=== PATIENT | female | born 1950 | race Hispanic/Latino ===

== ENCOUNTER → 2018-10-01 | Day surgery (SDC) | payer MEDICARE ==
[2018-09-28 11:51] LABS: BASOPHILS % 0.4 % (0.0-1.0); EOSINOPHILS # (AUTO) 0.1 (0.0-0.4); EOSINOPHILS % 1.4 % (0.0-6.0); HEMATOCRIT 39.7 % (34.2-44.1); HEMOGLOBIN 13.2 g/dL (12.0-16.0); LYMPHOCYTES % 41.4 % (18.0-39.1); MEAN CORPUSCULAR HEMOGLOBIN 30.1 pg (28-32); MEAN CORPUSCULAR HGB CONC 33.2 g/dL (31-35); MEAN CORPUSCULAR VOLUME 90.6 fL (81-99); MONOCYTES # (AUTO) 0.3 (0.2-0.8); MONOCYTES % 6.8 % (4.4-11.3); NEUTROPHILS # (AUTO) 2.4 (2.1-6.9); PLATELET COUNT 213 x10e3/uL (140-360); RED BLOOD COUNT 4.38 x10e6/uL (3.6-5.1); RED CELL DISTRIBUTION WIDTH 11.6 % (11.7-14.4)
[~2018-10-01] MED LIST: ACTONEL35 MG PO; FENTANYL CITRATE/PF 100MCG/2 ML INJ ONE; LIDOCAINE HCL 2% LOCAL INJ 5 ML SDV VIAL INJ ONE; MIDAZOLAM HCL 2 MG/2 ML VIAL ONE; OXYBUTYNIN CHLO10 MG PO; OYSTER SHELL C1 EACH PO; PROPOFOL IV EMULSION 10 MG/ML 50 ML VIAL ONE; TYLENOL ARTHRITIS PO
--- OUTSIDE RECORDS SUMMARY | 2018-10-01 07:51 | XMS REPORT | Summary of Care ---
Author Author [facility] Outpatient Imaging [facility] Outpatient Imaging [facility] Address Unknown Phone Unavailable Encounter HQ Encntr_alias(FIN) [id number] Date(s): 10/09/17 - 10/09/17 [facility] Outpatient Imaging [facility] [address], [address] [place] [phone] Encounter Diagnosis Pain in unspecified joint (Final) - 10/13/17 Primary osteoarthritis, left hand (Final) - Discharge Disposition: Home or Self Care Attending Physician: Evy Denis MD Vital Signs No data available for this section Problem List No data available for this section Allergies, Adverse Reactions, Alerts No data available for this section Medications No data available for this section Results No data available for this section Immunizations No data available for this section Procedures No data available for this section Social History No data available for this section Assessment and Plan No data available for this section
--- OUTSIDE RECORDS SUMMARY | 2018-10-01 07:51 | XMS REPORT | Summary of Care ---
Author Author [facility] Organization [facility] Address Unknown Phone Unavailable Encounter HQ Encntr_alias(FIN) [id number] Date(s): 06/14/15 - 06/14/15 [facility] [address] [place] [address]- Discharge Disposition: Home Attending Physician: Jennifer Hurtado MD Referring Physician: Jennifer Hurtado MD Vital Signs No data available for [...]
--- OUTSIDE RECORDS SUMMARY | 2018-10-01 07:51 | XMS REPORT | Summary of Care ---
Author Author [facility] Outpatient Imaging [facility] Outpatient Imaging [facility] Address Unknown Phone Unavailable Encounter HQ Encntr_alias(FIN) [id number] Date(s): 03/21/17 - 03/21/17 [facility] Outpatient Imaging [facility] [address], [address] [place], [place] [address] [phone] Discharge Disposition: Home or Self Care Attending Physician: Ronaldo Vasquez MD Vital Signs No data available for [...]
--- OUTSIDE RECORDS SUMMARY | 2018-10-01 07:51 | XMS REPORT | Summary of Care ---
Author Author [facility] Organization [facility] Address Unknown Phone Unavailable Encounter HQ Encntr_alias(FIN) [id number] Date(s): 07/12/15 - 07/12/15 [facility] [address] [place] [address]- Discharge Disposition: Home Attending Physician: Jennifer Hurtado [...]
--- OUTSIDE RECORDS SUMMARY | 2018-10-01 07:51 | XMS REPORT | Summary of Care ---
Author Author [facility] Organization [facility] Address Unknown Phone Unavailable Encounter HQ Encntr_alimarvin(FIN) [id number] Date(s): 07/09/16 - 07/09/16 [facility] [address] [place] [address]- [phone] Discharge Disposition: Home or Self Care Attending Physician: Lara Barreto MD Referring Physician: Lara Barreto MD Vital Signs No data available for [...]
--- OUTSIDE RECORDS SUMMARY | 2018-10-01 07:51 | XMS REPORT | Summary of Care ---
Author Author [facility] Outpatient Imaging [facility] Outpatient [facility] Address Unknown Phone Unavailable Encounter HQ Encntr_alias(FIN) [id number] Date(s): 09/09/17 - 09/09/17 [facility] Outpatient [facility] [address] [phone]- [phone] Discharge Disposition: Home or Self Care Attending Physician: Lara Barreto MD Vital Signs No [...]
--- OUTSIDE RECORDS SUMMARY | 2018-10-01 07:51 | XMS REPORT | Continuity of Care Document ---
Author Author [facility] Interface Address Unknown Phone Unavailable Problems Problem Status Onset Date Classification Date Reported Comments Source Pain in unspecified joint 10/14/2017 01/15/2018 [facility] R92.2 Active 07/02/2016 [facility] DX: SCREENING NO PAIN,NO LUMPS,LAST MM Active 06/03/2016 [facility] DENSITY Active 07/10/2015 [facility] RIGHT BREAST DENSITY Active 07/10/2015 [facility] MAMMOGRAM Active 05/25/2015 [facility] LT BREAT PAIN Active 07/13/2014 [facility] LT BREAST PAIN Active 07/13/2014 [facility] Primary osteoarthritis, left hand 01/15/2018 SEYMOUR Mccarthyshore ENCNTR SCREEN MAMMOGRAM FOR MALIGNANT NE Active [facility] AGE-RELATED OSTEOPOROSIS W/O CURRENT PAT Active [facility] INCONCLUSIVE MAMMOGRAM Active [facility] Medications Medication Details Route Status Patient Instructions Ordering Provider Order Date Source Allergies, Adverse Reactions, Alerts Substance Category Reaction Severity Reaction type Status Date Reported Comments Source Immunizations Immunization Date Given Site Status Last Updated Comments Source Results Order Name Results Value Reference Range Date Interpretation Comments Source Bone Density D[employer] MA Bone Density [employer] MA BONE DENSITY ASSESSMENT: 09/16/2018 CLINICAL DATA: Post menopausal. /M81.0 Age-Related Osteoporosis Without Current Pathological Fracture COMPARISON: 09/09/2017 Right femur neck using a Hologic unit from [facility] with reported medium fracture risk, BMD of 0.594g/cm2, T-score of -2.30, and Z- score of -0.80. 09/09/2017 AP L1-L4 region of spine using a Hologic unit from [facility] with reported high fracture risk, BMD of 0.694g/cm2, T-score of - 3.20, and Z-score of -1.30. 09/09/2017 Left femur neck using a Hologic unit from [facility] with reported high fracture risk, BMD of 0.573g/cm2, T-score of -2.50, and Z- score of -1.00. FINDINGS: Bone density evaluation was performed 09/16/2018 on the right femur neck using a Hologic unit. The BMD average for the exam is 0.559 g/cm2. The T-score is -2.70 and the Z-score is -1.00. Since the previous similar exam of 09/09/2017, there has been a -0.035 or -5.9% change in the BMD value which represents no significant interval change in bone density. This matches the World Health Organization's criteria for osteoporosis and places the patient at a high risk for fracture. An additional bone density evaluation was performed 09/16/2018 on the left femur neck using a Hologic unit. The BMD average for the exam is 0.555 g/cm2. The T- score is -2.70 and the Z-score is -1.10. Since the previous similar exam of 09/09/2017, there has been a -0.018 or -3.1% change in the BMD value which represents no significant interval change in bone density. This matches the World Health Organization's criteria for osteoporosis and places the patient at a high risk for fracture. An additional bone density evaluation was performed 09/16/2018 on the AP L1-L4 region of spine using a Hologic unit. The BMD average for the exam is 0.688 g/cm2. The T-score is -3.30 and the Z-score is -1.30. Since the previous similar exam of 09/09/2017, there has been a -0.006 or -0.9% change in the BMD value which represents no significant interval change in bone density. This matches the World Health Organization's criteria for osteoporosis and places the patient at a high risk for fracture. IMPRESSION: OSTEOPOROSIS Patient is at high risk for fracture. This exam was interpreted at [id number] for [employer]. Edita charles/franci:09/17/2018 08:59:16 Admission Liaison(s): [facility] 09/16/2018 - - Read by: Edita Mccormick MD Dictated Date/time: 09/17/18 08:59 Electronically Signed by: Edita Mccormick MD 09/17/18 08:59 FINAL REPORT [facility] Breast Complete Jarrell US Breast Complete Jarrell US COMPLETE ULTRASOUND OF BOTH BREASTS AND AXILLA: 09/16/2018 CLINICAL: /R92.2 Inconclusive Mammogram. COMPARISON:Comparison is made to exams dated: 09/16/2018 mammogram - [facility], 09/09/2017 mammogram - [facility], 07/09/2016 ultrasound, 06/21/2016 mammogram, 07/12/2015 ultrasound, and 07/12/2015 mammogram - [facility]. TECHNIQUE: Color flow and real-time ultrasound of the right breast four quadrants, retroareolar, and axilla regions and real-time ultrasound of the left breast four quadrants, retroareolar, and axilla regions were performed. FINDINGS: No abnormalities were seen sonographically in either breast or either axilla. IMPRESSION: BENIGN RECOMMENDATION:There is no sonographic evidence of malignancy. A 1 year screening mammogram and an ultrasound is recommended.(09/17/2019) This exam [facility] at [id number] [facility]. Edi Joshi M.D. mt/penrad:09/16/2018 14:40:50 Admission Liaison(s): Kati Tran RDMS, [facility] letter sent: BI-RADS 1/2 Dense Ultrasound BI-RADS: 2 Benign 09/16/2018 - - Read by: Edi Joshi MD Dictated Date/time: 09/16/18 14:40 Electronically Signed by: Edi Joshi MD 09/16/18 14:40 FINAL REPORT [facility] Breast Mammo Scrn JARRELL w elodia incl CAD MA Breast Mammo Scrn JARRELL w elodia incl CAD MA BILATERAL DIGITAL SCREENING MAMMOGRAM 3D/2D WITH CAD: 09/16/2018 CLINICAL: /Screening. Current study was evaluated with a Computer Aided Detection (CAD) system. COMPARISON:Comparison is made to exams dated: 09/09/2017 mammogram - [facility], 07/09/2016 ultrasound, 06/21/2016 mammogram, 07/12/2015 ultrasound, 07/12/2015 mammogram, and 06/14/2015 mammogram - [facility]. TECHNIQUE: Digital Breast Tomosynthesis was performed and utilized for Interpretation. Current study was also evaluated with a Computer Aided Detection (CAD) system. FINDINGS: The tissue of both breasts is heterogeneously dense, which could obscure detection of small masses. There are benign scattered densities and calcifications in both breasts. No significant masses, calcifications, or other findings are seen in either breast. There has been no significant interval change. IMPRESSION: BENIGN There is no mammographic evidence of malignancy. PLEASE SEE SAME DAY ULTRASOUND REPORT. This exam was interpreted at [id number] for [facility] [employer]. Edi Joshi M.D. mt/:09/16/2018 14:39:13 Admission Liaison(s): Madina Go [facility] Mammogram BI-RADS: 2 Benign 09/16/2018 - - Read by: Edi Joshi MD Dictated Date/time: 09/16/18 14:39 Electronically Signed by: Edi Joshi MD 09/16/18 14:39 [facility] Bilateral DX Hand 3 views Bilateral DX EXAM: XR BILATERAL HAND 3 VIEWS DATE: 10/09/2017 2:06 PM GYROSCOPE TECHNICIAN INDICATION: - M25.50 Pain in unspecified joint COMPARISON: None. TECHNIQUE: PA, lateral and oblique radiographs of the bilateral hands. FINDINGS: No acute fracture or malalignment is identified. Joint space narrowing, sclerosis, and osteophytes of the left first CMC joint. No other joint space narrowing or osteophytes. No erosions. No soft tissue abnormality is identified. IMPRESSION: 1. 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 2. No other arthritic changes of the hands. 10/09/2017 - - This report was dictated by a Mirror Finishing Machine Operator/Fellow. I have personally reviewed the images as well as the Resident's interpretation and agree with the findings. Read by: Beba Brennan MD Resident: Beba Brennan MD Dictated Date/time: 10/09/17 15:21 Electronically Signed by: Oz Pacheco MD 10/09/17 19:14 FINAL [facility] Should[facility] 2+ Views Bilateral DX Shoulder 2+ Views Bilateral DX EXAM: XR BILATERAL SHOULDER 3 VIEWS DATE: 10/09/2017 2:06 PM GYROSCOPE TECHNICIAN INDICATION: - M25.50 Pain in unspecified joint COMPARISON: CT chest 09/09/2017 TECHNIQUE: 3 views of the bilateral shoulders FINDINGS: No acute fracture or malalignment is identified. The acromioclavicular and glenohumeral joints are well aligned. No soft tissue abnormality is identified. IMPRESSION: Normal exam of the bilateral shoulders. 10/09/2017 - - This report was dictated by a Mirror Finishing Machine Operator/Fellow. I have personally reviewed the images as well as the Resident's interpretation and agree with the findings. Read by: Beba Brennan MD Resident: Beba Brennan MD Dictated Date/time: 10/09/17 15:26 Electronically Signed by: Oz Pacheco MD 10/09/17 19:15 FINAL REPORT [facility] Chest w/wo contrast CT Chest w/wo contrast CT PROCEDURE: CHEST CT CLINICAL INDICATION: R91.1 - LUNG NODULE, ABNORMAL IMAGING. COMPARISON: Chest x-ray 03/21/2017. Report of an abdomen and pelvis CT performed 03/12/2017 from an outside facility was reviewed. The images are not available for direct comparison. Clustered tiny nodules in the right lower lobe which may represent recent infection was reported on that examination. TECHNIQUE: Unenhanced and enhanced axial helical CT images of the chest were performed. Postcontrast coronal and sagittal reformatted images are available. IV contrast: [address] radiation dose DLP 485.71 mGy-cm. FINDINGS: LUNGS: No demonstrable pulmonary nodule with particular attention to the right lower lobe. Minimal scarring in both lung apices. Minimal atelectasis/scarring in both lower lobes. No lung consolidation, pneumothorax or pleural effusion. The central airways are patent. MEDIASTINUM: Normal heart size. Trace fluid in the superior pericardial recess. Mild left coronary artery calcifications. Mild calcification of the transverse thoracic aorta. The caliber of the thoracic aorta and main pulmonary artery are within normal limits. No pathologic lymphadenopathy. No demonstrable abnormality of the thoracic esophagus or visualized thyroid gland. UPPER ABDOMEN: Splenic artery calcifications. No additional significant abnormality in the visualized upper abdomen. MUSCULOSKELETAL: 6 mm presumed sebaceous cyst in the subcutaneous fat of the right anterior abdomen (image 65 series 4). Stable slight curvature of the mid thoracic spine. A subcentimeter sclerotic focus in the marrow of L2 is likely a benign bone island. Few subcentimeter cysts in the marrow of the medial aspect of the right humeral head. IMPRESSION: 1. No demonstrable pulmonary nodule. 2. Minimal scarring in both lung apices and minimal atelectasis/scarring in both lower lobes. 3. Left coronary artery disease. 4. Presumed subcentimeter sebaceous cyst in the subcutaneous fat of the right anterior abdomen. 5. Osseous findings as described above. SL: 16 09/09/2017 - - Read by: Stanley Valverde MD Dictated Date/time: 09/10/17 08:33 Electronically Signed by: Stanley Valverde MD 09/10/17 09:09 FINAL REPORT [facility] Bone Density DXA [employer] MA Bone Density DXA [employer] MA BONE DENSITY ASSESSMENT: 09/09/2017 CLINICAL DATA: Post menopausal. M81.0-Osteoporosis. /M81.0 Age-Related Osteoporosis Without Current Pathological Fracture FINDINGS: Bone density evaluation was performed 09/09/2017 on the right femur neck using a Hologic unit. The BMD average for the exam is 0.594 g/cm2. The T-score is -2.30 and the Z-score is -0.80. This matches the World Health Organization's criteria for osteopenia and places the patient at a medium risk for fracture. An additional bone density evaluation was performed 09/09/2017 on the left femur neck using a Hologic unit. The BMD average for the exam is 0.573 g/cm2. The T- score is -2.50 and the Z-score is -1.00. This matches the World Health Organization's criteria for osteoporosis and places the patient at a high risk for fracture. An additional bone density evaluation was performed 09/09/2017 on the right total femur area using a Hologic unit. The BMD average for the exam is 0.695 g/cm2. The T-score is -2.00 and the Z-score is -0.70. This matches the World Health Organization's criteria for osteopenia and places the patient at a medium risk for fracture. An additional bone density evaluation was performed 09/09/2017 on the left total femur area using a Hologic unit. The BMD average for the exam is 0.678 g/cm2. The T-score is -2.20 and the Z-score is -0.90. This matches the World Health Organization's criteria for osteopenia and places the patient at a medium risk for fracture. An additional bone density evaluation was performed 09/09/2017 on the AP L1-L4 region of spine using a Hologic unit. The BMD average for the exam is 0.694 g/cm2. The T-score is -3.20 and the Z-score is -1.30. This matches the World Health Organization's criteria for osteoporosis and places the patient at a high risk for fracture. This was performed on a Hologic Discovery W machine. IMPRESSION: OSTEOPOROSIS Patient is at high risk for fracture. Patient consult w/primary care provider is recommended. This exam was interpreted at [id number] for [facility]. Jaymie Harrison M.D. ak/penrad:09/10/2017 10:38:30 Admission Liaison(s): Federica MORE)(M), [facility] 09/09/2017 - - Read by: Jaymie Harrison MD Dictated Date/time: 09/10/17 10:38 Electronically Signed by: Jaymie Harrison MD 09/10/17 10:38 FINAL REPORT [facility] Breast Mammo Scrn JARRELL incl CAD MA Breast Mammo Scrn JARRELL incl CAD MA BILATERAL DIGITAL SCREENING MAMMOGRAM WITH CAD: 09/09/2017 CLINICAL: /Routine. Current study was evaluated with a Computer Aided Detection (CAD) system. COMPARISON:Comparison is made to exams dated: 06/21/2016 mammogram, 07/12/2015 mammogram, 06/14/2015 mammogram - [facility], and 06/09/2014 mammogram. TECHNIQUE: Mammographic views were obtained using digital acquisition. Current study was also evaluated with a Computer Aided Detection (CAD) system. FINDINGS: The tissue of both breasts is heterogeneously dense, which could obscure detection of small masses. Stable left breast upper inner quadrant asymmetry may represent a hamartoma. There are benign calcifications in the right breast. No significant masses, calcifications, or other findings are seen in either breast. There has been no significant interval change. IMPRESSION: BENIGN RECOMMENDATION:There is no mammographic evidence of malignancy. A 1 year screening mammogram is recommended.(09/10/2018) This exam was interpreted at [id number] for [facility]. Professional services are provided by the [facility]. Wayne Mayorga M.D. cm/penrad:09/09/2017 15:35:10 Admission Liaison(s): RT Benjamin(R)(M), [facility] letter sent: BI-RADS 1/2 Mammogram BI-RADS: 2 Benign 09/09/2017 - - Read by: Kaushal Love MD Dictated Date/time: 09/09/17 15:35 Electronically Signed by: Kaushal Love MD 09/09/17 15:35 FINAL REPORT [facility] Chest 4 views DX Chest 4 views DX EXAM: XR CHEST 2 VIEWS DATE: 03/21/2017 1:36 PM CDT INDICATION: - R89.9 Unspecified abnormal finding in specimens from other organs, systems and tissues COMPARISON: None TECHNIQUE: PA and lateral chest radiographs FINDINGS: No pulmonary or pleural-based abnormality is identified. Pulmonary vascularity is normal. The heart size is normal. No acute bony abnormality is identified. IMPRESSION: No acute cardiopulmonary abnormality. 03/21/2017 - - Read by: Calos Morales MD Dictated Date/time: 03/21/17 13:53 Electronically Signed by: Calos Morales MD 03/21/17 13:53 FINAL REPORT [facility] Breast Complete Jarrell US Breast Complete Jarrell US - BREAST COMPLETE JARRELL US ULTRASOUND OF BOTH BREASTS AND BOTH AXILLA: 07/09/2016 CLINICAL: Dense breasts. Comparison is made to exams dated: 06/21/2016 mammogram, 07/12/2015 ultrasound, 07/12/2015 mammogram, 06/14/2015 mammogram - [facility], 06/09/2014 mammogram and 12/27/2010 mammogram. Color flow and real-time ultrasound of both breasts and both axilla were performed. Weaver scale images of the real-time examination were reviewed. For both breasts, all 4 quadrants, the retroareolar region and axilla are evaluated in this exam. No abnormalities were seen sonographically in either breast or either axilla. There has been no significant interval change. IMPRESSION: NEGATIVE There is no sonographic evidence of malignancy. A 1 year screening mammogram is recommended. The results were reviewed with the patient. Kip burdent/:07/09/2016 11:16:51 Admission Liaison: Ulises Monson, [facility] This exam was dictated and interpreted by [id number] for [facility]. letter sent: Normal [place] Ultrasound BI-RADS: 1 Negative 07/09/2016 - - Read by: Kip Jordan MD Dictated Date/time: 07/09/16 11:16 Electronically Signed by: Kip Jordan MD 07/09/16 11:16 FINAL REPORT [facility] Digital Mammo Screening Jarrell MA Digital Mammo Screening Jarrell MA - DIGITAL MAMMO SCREENING JARRELL MA BILATERAL DIGITAL SCREENING MAMMOGRAM WITH CAD: 06/21/2016 CLINICAL: Routine. Current study was evaluated with a Computer Aided Detection (CAD) system. Comparison is made to exams dated: 07/12/2015 mammogram, 06/14/2015 mammogram - [facility], 06/09/2014 mammogram and 12/27/2010 mammogram. The tissue of both breasts is heterogeneously dense, which could obscure detection of small masses. There are benign scattered densities in both breasts. There also are benign vascular calcifications in the right breast. No significant masses, calcifications, or other findings are seen in either breast. There has been no significant interval change. IMPRESSION: BENIGN There is no mammographic evidence of malignancy. A 1 year screening mammogram is recommended. SUMMARY: As the patient has dense breast parenchyma with scattered densities, this could obscure additional abnormalities. The patient would likely benefit from a supplemental screening test such as bilateral ultrasound. This should be discussed with the patient by the referring physician. Kip wright/penrad:06/21/2016 12:19:38 Admission Liaison: Elana Robbins, [facility] This exam was dictated and interpreted by [id number] for [facility]. letter sent: Normal [place] Mammogram BI-RADS: 2 Benign 06/21/2016 - - Read by: Kip Jordan MD Dictated Date/time: 06/21/16 12:19 Electronically Signed by: Kip Jordan MD 06/21/16 12:19 FINAL REPORT [facility] Bone Density Scan Bone Density Scan BONE DENSITY: HISTORY: Osteoporosis. TECHNIQUE: Dual energy x-ray absorptiometry (DEXA) was done over the lumbar spine and left hip on a [employer] Discovery SL scanner. FINDINGS: The total T-score over the lumbar spine is -3.4, consistent with osteoporosis. The previous T-score on 06/14/2015 was -3.4, consistent with osteoporosis. There has been a no change in BMD since the last exam The global T-score over the left hip is -1.7, consistent with osteopenia. The previous T-score was -1.7, consistent with osteopenia. There has been a 0.3% decrease in BMD since the last exam. The focal T-score over the left femoral neck is -2.6, consistent with osteoporosis. The BMD is 0.565 g/sq cm. The previous T-score over the left femoral neck was -2.7, consistent with osteoporosis, with a previous BMD of 0.559 g/sq cm. IMPRESSION: 1. Osteoporosis of the lumbar spine. 2. Global osteopenia of the left hip. 3. Focal osteoporosis of the left femoral neck. FOR YOUR INFORMATION: The World Health Organization has established that OSTEOPOROSIS occurs at -2.5 or more standard deviations (T-score) below peak bone mass (T-score on the Hologic report). OSTEOPENIA occurs at -1.0 to -2.5 standard deviations (T-score) below peak bone mass. [id number] 06/21/2016 - - Read by: Rishi Marrero MD Dictated Date/time: 06/21/16 10:39 Electronically Signed by: Rishi Marrero MD 06/21/16 10:42 FINAL REPORT [facility] Breast Complete Uni US Breast Complete Uni US - BREAST COMPLETE UNI US/R ULTRASOUND OF RIGHT BREAST AND RIGHT AXILLA: 07/12/2015 CLINICAL: Abnormal mammogram, mammographic nodule/density. Comparison is made to exams dated: 07/12/2015 mammogram, 06/14/2015 mammogram, 07/26/2014 breast MRI - [facility], 12/27/2010 mammogram and 06/09/2014 mammogram. Color flow and real-time ultrasound of the right breast and axilla were performed. Weaver scale images of the real-time examination were reviewed. All 4 quadrants, the retroareolar region and axilla are evaluated in this exam. No abnormalities were seen sonographically in the right breast or the right axilla. IMPRESSION: BENIGN There is no sonographic abnormality seen in the right breast to correspond with the initial mammographic density which is consistent with normal fibroglandular tissue. There is no sonographic evidence of malignancy. Return to annual mammogram screening schedule is recommended. The results were reviewed with the patient. Kip wright/:07/12/2015 10:50:20 Admission Liaison: Ulises Monson, [facility] This exam was dictated and interpreted by [id number] for [facility]. letter sent: Normal exam Ultrasound BI-RADS: 2 Benign 07/12/2015 - - Read by: Kip Jordan MD Dictated Date/time: 07/12/15 10:50 Electronically Signed by: Kip Jordan MD 07/12/15 10:50 FINAL REPORT [facility] Digital Mammo DX Uni MA Digital Mammo DX Uni MA - DIGITAL MAMMO DX UNI MA/R UNILATERAL RIGHT DIGITAL DIAGNOSTIC MAMMOGRAM WITH CAD: 07/12/2015 CLINICAL: Density abnormal mammogram, mammographic nodule/density. Current study was evaluated with a Computer Aided Detection (CAD) system. Comparison is made to exams dated: 06/14/2015 mammogram, 07/26/2014 breast MRI - [facility], 06/09/2014 mammogram and 12/27/2010 mammogram. The tissue of the right breast is heterogeneously dense, which could obscure detection of small masses. There are benign vascular calcifications in the right breast. There is a focal asymmetry in the right breast at 10 o'clock posterior depth. This is less prominent and correlates with the prior exam. No other significant masses or calcifications are seen in the breast. IMPRESSION: INCOMPLETE: NEEDS ADDITIONAL IMAGING EVALUATION The focal asymmetry in the right breast resembles fibroglandular tissue and is indeterminate. An ultrasound is recommended. The results were reviewed with the patient. SUMMARY: Ultrasound will be performed at this time; please see dedicated separate report. Kip wright/penrad:07/12/2015 10:51:07 Admission Liaison: Megan Rodriguez, [facility] This exam was dictated and interpreted by [id number] for [facility]. Mammogram BI-RADS: 0 Indeterminate 07/12/2015 - - Read by: Kip Jordan MD Dictated Date/time: 07/12/15 10:51 Electronically Signed by: Kip Jordan MD 07/12/15 10:51 FINAL REPORT [facility] Digital Mammo Screen Jarrell MA w elodia Digital Mammo Screen Jarrell MA w elodia - DIGITAL MAMMO SCREEN JARRELL MA W ELODIA BILATERAL DIGITAL SCREENING MAMMOGRAM 3D/2D WITH CAD: 06/14/2015 CLINICAL: Routine. 2D digital mammographic images and 3D digital tomosynthesis images were obtained in the CC and MLO projections. Current study was evaluated with a Computer Aided Detection (CAD) system. Comparison is made to exams dated: 06/09/2014 mammogram and 12/27/2010 mammogram. The tissue of both breasts is heterogeneously dense, which could obscure detection of small masses. There are benign vascular calcifications in the right breast. There is a focal asymmetry in the right breast at 11 o'clock posterior depth. There is possible associated architectural distortion. No other significant masses, calcifications, or other findings are seen in either breast. IMPRESSION: INCOMPLETE: NEEDS ADDITIONAL IMAGING EVALUATION The focal asymmetry in the right breast is indeterminate. Right diagnostic mammogram with possible ultrasound is recommended (spot compression, rolled views, and lateral view). Kip wright/penmaddi:07/05/2015 13:19:25 Admission Liaison: Margie Gonzalez, [facility] This exam was dictated and interpreted by [id number] for [facility] Breast [place]. letter sent: Additional Imaging Mammogram BI-RADS: 0 Indeterminate 06/14/2015 - - Read by: Kip Jordan MD Dictated Date/time: 07/05/15 13:19 Electronically Signed by: Kip Jordan MD 07/05/15 13:19 FINAL REPORT [facility] Bone Density Scan Bone Density Scan BONE DENSITY: TECHNIQUE: Dual energy x-ray absorptiometry (DEXA) was done over the lumbar spine and left hip. FINDINGS: The total T-score over the lumbar spine is -3.4, consistent with osteoporosis. The global T-score over the left hip is -1.7, consistent with osteopenia. The focal T-score over the left femoral neck is -2.7, consistent with osteoporosis. IMPRESSION: 1. Osteoporosis of the lumbar spine. 2. Global osteopenia of the left hip. 3. Focal osteoporosis of the left femoral neck. FOR YOUR INFORMATION: The World Health Organization has established that OSTEOPOROSIS occurs at -2.5 or more standard deviations below peak bone mass (T-score). OSTEOPENIA occurs at -1.0 to -2.5 standard deviations (T-score) below peak bone mass. SL:13 06/14/2015 - - Read by: Rishi Marrero MD Dictated Date/time: 06/14/15 11:52 Electronically Signed by: Rishi Marrero MD 06/14/15 11:53 FINAL REPORT [facility] Breast w/wo contrast bilat MRI Breast w/wo contrast bilat MRI BILATERAL BREAST MRI WITHOUT AND WITH CONTRAST dated 07/26/2014 COMPARISON: Outside facility mammogram 06/09/2014 and 12/27/2010 HISTORY/INDICATION: 64-year-old female with left breast pain. No personal history of breast cancer. Family history of breast cancer in a cousin. TECHNIQUE: Bilateral breast MRI was performed on a 1.5 Janet magnet with a dedicated breast coil. Sagittal, axial and sagittal subtraction imaging of the Vibrant dynamic images was performed. 10 ccs of Omniscan contrast was administered during the post infusion portion of the exam. Post processing images include post contrast subtraction, maximum intensity projection, and reconstructed multiplanar images. Exam was performed for evaluation of the breasts only. Although the [id number] includes portions of the chest, thoracic spine, and superior aspect of the abdomen, this exam is not diagnostic for those areas as it is not protocolled as such. These areas are limited by technical artifacts and cardiac motion. Time signal intensity curves were also analyzed using a [employer] workstation version 2.1.1. All measurements provided below are in the anterior-posterior X width X craniocaudal format. FINDINGS: Exam is degraded by patient respiratory motion. Right breast: Minimal background enhancement is present. No suspicious enhancement throughout the right breast. No internal mammary chain or axillary chain adenopathy. The skin and nipple-areolar complex appear unremarkable. Left breast: Minimal background enhancement is present. No suspicious enhancement throughout the left breast. No internal mammary chain or axillary chain adenopathy. The skin and nipple-areolar complex appear unremarkable. IMPRESSION: Exam is degraded by patient respiratory motion. No MRI evidence for malignancy in either breast. No adenopathy throughout the exam. No suspicious finding in the left breast to correspond with the patient's pain which may be perimenopausal hormonal stimulation in etiology. Continued clinical correlation is recommended. Unless otherwise clinically indicated, recommend bilateral screening mammogram in 05/2015. ACR BI-RADS CATEGORY 1 - NEGATIVE EXAM SL: 13 Thank you for allowing us to participate in the care of your patient. 07/26/2014 - - Read by: Kip Jordan MD Dictated Date/time: 07/26/14 14:58 Electronically Signed by: Kip Jordan MD 07/27/14 13:27 FINAL REPORT [facility] Vital Signs Vital Sign Value Date Comments Source Encounters Location Location Details Encounter Type Encounter Number Reason For Visit Attending Provider ADM Date DC Date Status Source [facility] Outpatient [id number] Jennifer Hurtado 07/26/2014 07/27/2014 [facility] Outpatient [id number] Jennifer Hurtado 06/14/2015 06/15/2015 [facility] Outpatient [id number] Jennifer Hurtado 07/12/2015 07/13/2015 [facility] Outpatient [id number] Lara Barreto 06/21/2016 06/22/2016 [facility] Outpatient [id number] Lara Barreto 07/09/2016 07/10/2016 [facility] [id number] Ronaldo Vasquez 03/21/2017 03/22/2017 [facility] [id number] Lara Barreto 09/09/2017 09/10/2017 [facility] [id number] Evy Denis 10/09/2017 10/10/2017 [facility] Procedures Procedure Code Date Perfomer Comments Source
--- OUTSIDE RECORDS SUMMARY | 2018-10-01 07:51 | XMS REPORT | Summary of Care ---
Author Organization Unknown Address Unknown Phone Unavailable Encounter HQ Encntr_jose(RAI) [id number] Date(s): 07/26/14 - 07/26/14 [facility] [address] Discharge Disposition: Home Physician Attending: Jennifer Hurtado MD Physician_Referring: Jennifer Hurtado MD Reason for Visit LT BREAST PAIN Problem List No data available for this section Allergies, Adverse Reactions, Alerts No data available for this section Medications No data available for this section Medications Administered During Your Visit No data available for this section Immunizations No data available for this section
[2018-10-01 10:50] VITALS: BP 131/76
--- NOTE | 2018-10-01 13:36 | Operative Report ---
DATE OF PROCEDURE: October 01, 2018 PREOPERATIVE DIAGNOSIS: History of colon polyps. POSTOPERATIVE DIAGNOSES 1. Cecal polyp removed with the hot biopsy forceps. 2. Scattered diverticula in the sigmoid and descending colon. 3. Internal hemorrhoids. OPERATION PERFORMED: Colonoscopy. PREOP MEDICATIONS: Consisted of TIVA anesthesia. PROCEDURE: Using the [employer] video colonoscope, this was inserted into the patient's rectum and advanced without difficulty to the level of the cecum. In the cecum a 4 mm sized flat polyp was identified and removed with the hot biopsy forceps. As the colonoscope was withdrawn from that level back down to the rectum, we saw some scattered diverticula in the sigmoid and descending colon only, without evidence of a diverticulitis. No other polyps were seen. As we withdrew the colonoscope from the patient's rectum, internal hemorrhoids were noted. The colonoscope was withdrawn from the patient's rectum, and the procedure was ended. In conclusion, we have findings of a polyp in the cecum which was removed, diverticulosis and internal hemorrhoids. Job#: [id number]
== END | disposition home or self-care (01) ==
LOC: OR 07:48
PROVIDERS: ATTEND Internal Medicine Gastroenterology
DX: Z12.11 Encounter for screening for malignant neoplasm of colon (principal); K63.5 Polyp of colon; K57.30 Diverticulosis of large intestine without perforation or abscess without bleeding; K59.00 Constipation, unspecified; K64.8 Other hemorrhoids; K21.9 Gastro-esophageal reflux disease without esophagitis; J45.909 Unspecified asthma, uncomplicated; E78.00 Pure hypercholesterolemia, unspecified; F41.9 Anxiety disorder, unspecified; Z88.1 Allergy status to other antibiotic agents; Z91.011 Allergy to milk products; Z91.018 Allergy to other foods; Z01.810 Encounter for preprocedural cardiovascular examination; Z01.812 Encounter for preprocedural laboratory examination; Z80.0 Family history of malignant neoplasm of digestive organs
CPT/HCPCS: 36415; 45384; 85025; 93005; J2001; J2250

== ENCOUNTER 2021-11-23 10:49 | Inpatient (IN) | payer MEDICARE ==
[2021-11-21 15:50] LABS: BASOPHILS % 0.3 % (0.0-1.0); EOSINOPHILS # (AUTO) 0.1 (0.0-0.4); EOSINOPHILS % 0.8 % (0.0-6.0); HEMATOCRIT 38.9 % (34.2-44.1); HEMOGLOBIN 13.1 g/dL (12.0-16.0); LYMPHOCYTES % 31.7 % (18.0-39.1); MEAN CORPUSCULAR HEMOGLOBIN 30.5 pg (28-32); MEAN CORPUSCULAR HGB CONC 33.7 g/dL (31-35); MEAN CORPUSCULAR VOLUME 90.7 fL (81-99); MONOCYTES # (AUTO) 0.4 (0.2-0.8); MONOCYTES % 5.7 % (4.4-11.3); NEUTROPHILS # (AUTO) 3.9 (2.1-6.9); NEUTROPHILS % 61.2 % (38.7-80.0); PLATELET COUNT 198 x10e3/uL (140-360); RED BLOOD COUNT 4.29 x10e6/uL (3.6-5.1); RED CELL DISTRIBUTION WIDTH 11.6 % (11.7-14.4)
[2021-11-21 16:08] LABS: ANION GAP 10.6 mmol/L (8-16); CALCIUM 9.7 mg/dL (8.4-10.2); CREATININE, SERUM 0.72 mg/dL (0.57-1.11); POTASSIUM 4.6 mmol/L (3.5-5.1)
[~2021-11-23] VITALS: Ht 154.9 cm; Wt 49.0 kg
[~2021-11-23 10:49] MED LIST changes: +ALENDRONATE SOD70 MG; +DOXAZOSIN MESYLA2 MG PO; +ESTRADIOL1 MG PO; -FENTANYL CITRATE/PF 100MCG/2 ML INJ ONE; -LIDOCAINE HCL 2% LOCAL INJ 5 ML SDV VIAL INJ ONE; -MIDAZOLAM HCL 2 MG/2 ML VIAL ONE; -PROPOFOL IV EMULSION 10 MG/ML 50 ML VIAL ONE; +TRIMETHOPRIM
[2021-11-23] MEDS ORDERED: GENTAMICIN 80MG/NS 100 ML 200 ML IV ONE (11:11)
[2021-11-23] MEDS ORDERED: PIPERACILLIN/TAZOBACTAM 3.375 GM VIAL ONE (11:12)
[2021-11-23] MEDS ORDERED: SODIUM CHLORIDE 0.9% 50ML 50 ML ONE (11:12)
[2021-11-23] MEDS ORDERED: ONDANSETRON HCL INJ 2MG/ML 2ML 2 MG/ML VIAL ONE (12:26)
[2021-11-23] MEDS ORDERED: LIDOCAINE HCL 2% LOCAL INJ 5 ML SDV VIAL INJ ONE (12:26)
[2021-11-23] MEDS ORDERED: POVIDONE IODINE 0.05% 0.05 % ML PO ONE (12:26)
[2021-11-23] MEDS ORDERED: SEVOFLURANE INHAL SOLN 250 ML PEN BTL ONE (12:26)
[2021-11-23] MEDS ORDERED: PROPOFOL IV EMULSION 10 MG/ML 20 ML VIAL ONE (12:26)
[2021-11-23] MEDS ORDERED: KETOROLAC TROMETHAMINE 30 MG/ML VIAL ONE (12:26)
[2021-11-23] MEDS ORDERED: PHENYLEPHRINE HCL 1% 10 MG/ML VIAL ONE (12:26)
[2021-11-23] MEDS ORDERED: NEOSTIGMINE 1 MG/ML 10ML VIAL ONE (12:26)
[2021-11-23] MEDS ORDERED: DEXAMETHASONE SOD PHOS INJ 4 MG/ML SDV ONE (12:26)
[2021-11-23] MEDS ORDERED: GLYCOPYRROLATE INJ 0.2 MG/ML VIAL ONE (12:26)
[2021-11-23] MEDS ORDERED: ROCURONIUM BROMIDE 10 MG/ML 5ML VIAL IV ONE (12:26)
[2021-11-23] MEDS ORDERED: IOPAMIDOL 300MG/ML 50ML INFUS..BTL IV ONE (12:47)
[2021-11-23] MEDS ORDERED: GENTAMICIN SULFATE 40 MG/ML 2 ML VIAL ONE (12:47)
[2021-11-23] MEDS ORDERED: BUPIVACAINE HCL 0.5% INJ 30 ML VIAL INJ ONE (12:47)
[2021-11-23] MEDS ORDERED: INDIGOTINDISULFONATE SODIUM 8 MG/ML AMP IJ ONE (12:47)
[2021-11-23] MEDS ORDERED: LIDOCAINE 1% W/EPINEPHRINE 20 ML VIAL ONE (12:47)
[2021-11-23] MEDS ORDERED: LIDOCAINE 2% /EPINEPHRINE 20 ML SDV INJ ONE (12:47)
[2021-11-23] MEDS ORDERED: ONDANSETRON HCL INJ 2MG/ML 2ML 2 MG/ML VIAL IV PRN (13:00)
[2021-11-23] MEDS ORDERED: DIPHENHYDRAMINE HCL 25 MG CAP PO PRN (13:00)
[2021-11-23] MEDS ORDERED: MORPHINE SULFATE 1 MG/ML 30ML PCA IV PRN ×2 (13:00→14:30)
[2021-11-23] MEDS ORDERED: ACETAMINOPHEN/CODEINE 300MG - 30MG TAB PO PRN (13:00)
[2021-11-23] MEDS ORDERED: NALOXONE HCL INJ 0.4 MG/ML AMP IV PRN (13:00)
[2021-11-23] MEDS ORDERED: PHENAZOPYRIDINE HCL 100 MG TAB PO PRN (13:00)
[2021-11-23] MEDS ORDERED: FENTANYL CITRATE/PF 100MCG/2 ML INJ ONE (13:12)
[2021-11-23] MEDS ORDERED: MIDAZOLAM HCL 2 MG/2 ML VIAL ONE (13:12)
[2021-11-23] MEDS ORDERED: MUPIROCIN 2% OINT 22 GM TUBE ONE (13:31)
[2021-11-23] MEDS ORDERED: ACETAMINOPHEN 1000 MG/100 ML 100 ML IV ONE (13:40)
[2021-11-23] MEDS ORDERED: ESTROGENS CONJUGATED VAGINAL CR 45 GM TUBE PV ONE (13:49)
[2021-11-23] MEDS ORDERED: MORPHINE SULFATE 1 MG/ML 30ML PCA ONE (14:25)
[2021-11-23 15:15] VITALS: BP 104/57
[2021-11-23] MEDS: D5.45%NS/KCL 20MEQ 1,000 ML IV SCH ×2 (16:01→22:04)
[2021-11-23] MEDS: DOCUSATE SODIUM 100 MG CAP PO SCH (16:06)
[2021-11-23 16:25] LABS: BASOPHILS % 0.2 % (0.0-1.0); EOSINOPHILS % 0.4 % (0.0-6.0); HEMATOCRIT 32.7 % (34.2-44.1); HEMOGLOBIN 10.7 g/dL (12.0-16.0); LYMPHOCYTES # (AUTO) 0.8 (1.0-3.2); LYMPHOCYTES % 16.9 % (18.0-39.1); MEAN CORPUSCULAR HEMOGLOBIN 30.6 pg (28-32); MEAN CORPUSCULAR HGB CONC 32.7 g/dL (31-35); MEAN CORPUSCULAR VOLUME 93.4 fL (81-99); MONOCYTES # (AUTO) 0.1 (0.2-0.8); MONOCYTES % 2.3 % (4.4-11.3); NEUTROPHILS # (AUTO) 3.9 (2.1-6.9); NEUTROPHILS % 79.8 % (38.7-80.0); PLATELET COUNT 160 x10e3/uL (140-360); RED CELL DISTRIBUTION WIDTH 11.7 % (11.7-14.4)
[2021-11-23 16:42] LABS: ANION GAP 9.7 mmol/L (8-16); CALCIUM 8.7 mg/dL (8.4-10.2); CREATININE, SERUM 0.68 mg/dL (0.57-1.11); POTASSIUM 3.7 mmol/L (3.5-5.1)
[2021-11-23 16:45] VITALS: BP 104/57
[2021-11-23 20:00] VITALS: BP 88/51
[2021-11-23 20:30] VITALS: BP 106/58
[2021-11-23] MEDS: PIPERACILLIN/TAZOBACTAM 3.375 GM in SODIUM CHLORIDE 0.9% 50ML 50 ML IV SCH (22:04)
[2021-11-24] VITALS (10 sets, daily range): BP systolic 96–110; BP diastolic 49–57
[2021-11-24] MEDS: PIPERACILLIN/TAZOBACTAM 3.375 GM in SODIUM CHLORIDE 0.9% 50ML 50 ML IV SCH ×3 (05:20→23:23)
[2021-11-24] MEDS: D5.45%NS/KCL 20MEQ 1,000 ML IV SCH ×3 (05:20→21:11)
[2021-11-24 06:16] LABS: BASOPHILS % 0.2 % (0.0-1.0); EOSINOPHILS % 0.1 % (0.0-6.0); HEMATOCRIT 25.9 % (34.2-44.1); HEMOGLOBIN 8.7 g/dL (12.0-16.0); LYMPHOCYTES # (AUTO) 1.3 (1.0-3.2); LYMPHOCYTES % 13.5 % (18.0-39.1); MEAN CORPUSCULAR HEMOGLOBIN 31.2 pg (28-32); MEAN CORPUSCULAR HGB CONC 33.6 g/dL (31-35); MEAN CORPUSCULAR VOLUME 92.8 fL (81-99); MONOCYTES # (AUTO) 0.5 (0.2-0.8); MONOCYTES % 4.9 % (4.4-11.3); NEUTROPHILS # (AUTO) 7.6 (2.1-6.9); NEUTROPHILS % 80.9 % (38.7-80.0); PLATELET COUNT 148 x10e3/uL (140-360); RED BLOOD COUNT 2.79 x10e6/uL (3.6-5.1); RED CELL DISTRIBUTION WIDTH 11.6 % (11.7-14.4)
[2021-11-24 06:29] LABS: CREATININE, SERUM 0.63 mg/dL (0.57-1.11)
[2021-11-24] MEDS ORDERED: ONDANSETRON HCL INJ 2MG/ML 2ML 2 MG/ML VIAL IV PRN (07:45)
[2021-11-24] MEDS ORDERED: ACETAMINOPHEN 325 MG TAB PO PRN (07:45)
[2021-11-24] MEDS ORDERED: MAGNESIUM SULFATE 2GM/50ML 50 ML IV ONE (07:45)
[2021-11-24] MEDS: DOXAZOSIN MESYLATE 2 MG TAB PO SCH (09:00)
[2021-11-24] MEDS ORDERED: SODIUM CHLORIDE 0.9% 1000ML 1,000 ML ONE (09:00)
[2021-11-24] MEDS: DOCUSATE SODIUM 100 MG CAP PO SCH ×2 (09:06→16:16)
[2021-11-24] MEDS ORDERED: PROMETHAZINE 25MG/ NS 50ML (IV) IV PRN (12:00)
[2021-11-25] VITALS (7 sets, daily range): BP systolic 104–124; BP diastolic 55–63
[2021-11-25 04:58] LABS: BASOPHILS % 0.3 % (0.0-1.0); EOSINOPHILS % 0.6 % (0.0-6.0); HEMATOCRIT 25.4 % (34.2-44.1); HEMOGLOBIN 8.4 g/dL (12.0-16.0); LYMPHOCYTES # (AUTO) 1.8 (1.0-3.2); LYMPHOCYTES % 28.9 % (18.0-39.1); MEAN CORPUSCULAR HGB CONC 33.1 g/dL (31-35); MEAN CORPUSCULAR VOLUME 93.7 fL (81-99); MONOCYTES # (AUTO) 0.4 (0.2-0.8); MONOCYTES % 6.4 % (4.4-11.3); NEUTROPHILS % 63.6 % (38.7-80.0); PLATELET COUNT 163 x10e3/uL (140-360); RED BLOOD COUNT 2.71 x10e6/uL (3.6-5.1)
[2021-11-25 05:24] LABS: ANION GAP 6.4 mmol/L (8-16); BLOOD UREA NITROGEN < 5 mg/dL (7-26); CALCIUM 8.4 mg/dL (8.4-10.2); CARBON DIOXIDE 29 mmol/L (22-29); CHLORIDE 111 mmol/L (98-107); CREATININE, SERUM 0.68 mg/dL (0.57-1.11); EST GLOMERULAR FILTRATION RATE 85 ML/MIN (60-); GLUCOSE 116 mg/dL (74-118); POTASSIUM 4.4 mmol/L (3.5-5.1); SODIUM 142 mmol/L (136-145)
[2021-11-25 05:26] LABS: BUN/CREATININE RATIO 7 (6-25)
[2021-11-25] MEDS: D5.45%NS/KCL 20MEQ 1,000 ML IV SCH (05:58)
[2021-11-25] MEDS: PIPERACILLIN/TAZOBACTAM 3.375 GM in SODIUM CHLORIDE 0.9% 50ML 50 ML IV SCH (05:58)
[2021-11-25] MEDS: DOXAZOSIN MESYLATE 2 MG TAB PO SCH (09:06)
[2021-11-25] MEDS: DOCUSATE SODIUM 100 MG CAP PO SCH ×2 (09:06→16:24)
[2021-11-25] MEDS: LEVOFLOXACIN 500 MG TAB PO SCH (11:03)
[2021-11-26] VITALS (7 sets, daily range): BP systolic 109–134; BP diastolic 61–72
[2021-11-26 06:03] LABS: BASOPHILS % 0.3 % (0.0-1.0); EOSINOPHILS # (AUTO) 0.1 (0.0-0.4); EOSINOPHILS % 1.4 % (0.0-6.0); HEMATOCRIT 25.6 % (34.2-44.1); HEMOGLOBIN 8.5 g/dL (12.0-16.0); LYMPHOCYTES # (AUTO) 1.8 (1.0-3.2); LYMPHOCYTES % 31.7 % (18.0-39.1); MEAN CORPUSCULAR HEMOGLOBIN 30.4 pg (28-32); MEAN CORPUSCULAR HGB CONC 33.2 g/dL (31-35); MEAN CORPUSCULAR VOLUME 91.4 fL (81-99); MONOCYTES # (AUTO) 0.4 (0.2-0.8); MONOCYTES % 7.4 % (4.4-11.3); NEUTROPHILS # (AUTO) 3.4 (2.1-6.9); NEUTROPHILS % 58.9 % (38.7-80.0); PLATELET COUNT 163 x10e3/uL (140-360); RED CELL DISTRIBUTION WIDTH 11.8 % (11.7-14.4)
[2021-11-26 06:35] LABS: ANION GAP 9.7 mmol/L (8-16); CALCIUM 8.8 mg/dL (8.4-10.2); CREATININE, SERUM 0.63 mg/dL (0.57-1.11); POTASSIUM 3.7 mmol/L (3.5-5.1)
[2021-11-26] MEDS: DOXAZOSIN MESYLATE 2 MG TAB PO SCH ×2 (08:50→08:54)
[2021-11-26] MEDS: DOCUSATE SODIUM 100 MG CAP PO SCH ×2 (08:50→08:54)
[2021-11-26] MEDS: LEVOFLOXACIN 500 MG TAB PO SCH (08:53)
[2021-11-26] MEDS ORDERED: ONDANSETRON HCL 4 MG ORAL DISINTEGRATING TAB PO PRN (11:15)
[2021-11-26] MEDS ORDERED: LEVOFLOXACIN250 MG PO (14:16)
[2021-11-26] MEDS ORDERED: TYLENOL 3 PO (14:18)
== END 2021-11-26 15:27 | disposition home or self-care (01) | DRG 748 ==
LOC: OR 10:49 → PACU V 14:43 → MED/SURG 15:15
PROVIDERS: ADMIT Internal Medicine; ATTEND Internal Medicine
PROC: BT141ZZ Fluoroscopy of Kidneys, Ureters and Bladder using Low Osmolar Contrast (ICD-10-PCS; 2021-11-23)
PROC: 8E0UXY7 Examination of Female Reproductive System (ICD-10-PCS; 2021-11-23)
PROC: 0JUC3JZ Supplement of Pelvic Region Subcutaneous Tissue and Fascia with Synthetic Substitute, Percutaneous Approach (ICD-10-PCS; principal; 2021-11-23 13:30)
PROC: 0TSD4ZZ Reposition Urethra, Percutaneous Endoscopic Approach (ICD-10-PCS; 2021-11-23 13:30)
PROC: 0T788ZZ Dilation of Bilateral Ureters, Via Natural or Artificial Opening Endoscopic (ICD-10-PCS; 2021-11-23 13:30)
DX: N81.4 Uterovaginal prolapse, unspecified (principal); N39.0 Urinary tract infection, site not specified; N81.6 Rectocele; N39.3 Stress incontinence (female) (male); Z90.710 Acquired absence of both cervix and uterus; N32.81 Overactive bladder; N95.2 Postmenopausal atrophic vaginitis; N36.41 Hypermobility of urethra; R39.14 Feeling of incomplete bladder emptying; R35.1 Nocturia; R39.15 Urgency of urination; Z20.822 Contact with and (suspected) exposure to COVID-19
CPT/HCPCS: 36415; 71046; 74420; 80048; 83735; 85025; 93005; 94799; 96360; C1752; C1758; J1100; J1580; J1885; J2001; J2250; J2270; J2370; J2405; J2543; J2550; J2710; J3010; J3475; J7030; U0002

== ENCOUNTER 2022-05-06 10:56 | Inpatient (IN) | payer MEDICARE ==
[2022-05-02 11:38] LABS: BASOPHILS % 0.4 % (0.0-1.0); EOSINOPHILS # (AUTO) 0.1 (0.0-0.4); EOSINOPHILS % 1.8 % (0.0-6.0); HEMATOCRIT 37.7 % (34.2-44.1); HEMOGLOBIN 12.3 g/dL (12.0-16.0); LYMPHOCYTES # (AUTO) 1.8 (1.0-3.2); LYMPHOCYTES % 39.2 % (18.0-39.1); MEAN CORPUSCULAR HEMOGLOBIN 29.9 pg (28-32); MEAN CORPUSCULAR HGB CONC 32.6 g/dL (31-35); MEAN CORPUSCULAR VOLUME 91.7 fL (81-99); MONOCYTES # (AUTO) 0.3 (0.2-0.8); MONOCYTES % 6.9 % (4.4-11.3); NEUTROPHILS # (AUTO) 2.3 (2.1-6.9); NEUTROPHILS % 51.5 % (38.7-80.0); PLATELET COUNT 189 x10e3/uL (140-360); RED BLOOD COUNT 4.11 x10e6/uL (3.6-5.1); RED CELL DISTRIBUTION WIDTH 12.6 % (11.7-14.4)
[2022-05-02 11:57] LABS: ANION GAP 9.1 mmol/L (8-16); CALCIUM 9.2 mg/dL (8.4-10.2); CREATININE, SERUM 0.67 mg/dL (0.57-1.11); POTASSIUM 4.1 mmol/L (3.5-5.1)
[~2022-05-06] VITALS: Ht 154.9 cm; Wt 48.5 kg
[~2022-05-06 10:56] MED LIST changes: +COLACE100 MG/10 PO; -ESTRADIOL1 MG PO; +ESTRADIOL1 MG TOP; +LEVOFLOXACIN250 MG PO; +TYLENOL 3 PO
[2022-05-06] MEDS ORDERED: GENTAMICIN 80MG/NS 100 ML 200 ML IV ONE (11:30)
[2022-05-06] MEDS ORDERED: PIPERACILLIN/TAZOBACTAM 3.375 GM VIAL ONE (11:30)
[2022-05-06] MEDS ORDERED: EPHEDRINE SULFATE INJ 50 MG/ML VIAL ONE (12:22)
[2022-05-06] MEDS ORDERED: LIDOCAINE HCL 2% LOCAL INJ 5 ML SDV VIAL INJ ONE (12:22)
[2022-05-06] MEDS ORDERED: DEXAMETHASONE SOD PHOS INJ 4 MG/ML SDV ONE (12:22)
[2022-05-06] MEDS ORDERED: NEOSTIGMINE 1 MG/ML 10ML VIAL ONE (12:22)
[2022-05-06] MEDS ORDERED: ROCURONIUM BROMIDE 10 MG/ML 5ML VIAL IV ONE (12:22)
[2022-05-06] MEDS ORDERED: SEVOFLURANE INHAL SOLN 250 ML PEN BTL ONE (12:22)
[2022-05-06] MEDS ORDERED: GLYCOPYRROLATE INJ 0.2 MG/ML VIAL ONE (12:22)
[2022-05-06] MEDS ORDERED: POVIDONE IODINE 0.05% 0.05 % ML PO ONE (12:22)
[2022-05-06] MEDS ORDERED: ONDANSETRON HCL INJ 2MG/ML 2ML 2 MG/ML VIAL ONE (12:22)
[2022-05-06] MEDS ORDERED: ACETAMINOPHEN 1000 MG/100 ML IV ONE (12:22)
[2022-05-06] MEDS ORDERED: PROPOFOL IV EMULSION 10 MG/ML 20 ML VIAL ONE (12:22)
[2022-05-06] MEDS ORDERED: MIDAZOLAM HCL 2 MG/2 ML VIAL ONE (12:41)
[2022-05-06] MEDS ORDERED: FENTANYL CITRATE/PF 100MCG/2 ML INJ ONE (12:41)
[2022-05-06] MEDS ORDERED: IOPAMIDOL 610MG/1ML 300 MG/ML VIAL IV ONE (12:56)
[2022-05-06] MEDS ORDERED: GENTAMICIN SULFATE 40 MG/ML 2 ML VIAL ONE (14:35)
[2022-05-06] MEDS ORDERED: ACETAMINOPHEN 1000 MG/100 ML IV PRN (15:15)
[2022-05-06] MEDS ORDERED: NALOXONE HCL INJ 0.4 MG/ML AMP IV PRN (15:15)
[2022-05-06] MEDS ORDERED: DIPHENHYDRAMINE HCL INJ 50 MG/ML VIAL IM PRN (15:15)
[2022-05-06] MEDS: MORPHINE SULFATE 1 MG/ML 30ML PCA IV PRN ×2 (15:35→17:13)
[2022-05-06 15:50] LABS: BASOPHILS % 0.3 % (0.0-1.0); EOSINOPHILS % 0.5 % (0.0-6.0); HEMATOCRIT 33.5 % (34.2-44.1); HEMOGLOBIN 11.4 g/dL (12.0-16.0); LYMPHOCYTES # (AUTO) 1.6 (1.0-3.2); LYMPHOCYTES % 25.8 % (18.0-39.1); MEAN CORPUSCULAR HEMOGLOBIN 30.2 pg (28-32); MEAN CORPUSCULAR VOLUME 88.6 fL (81-99); MONOCYTES # (AUTO) 0.1 (0.2-0.8); MONOCYTES % 2.2 % (4.4-11.3); NEUTROPHILS # (AUTO) 4.5 (2.1-6.9); NEUTROPHILS % 70.7 % (38.7-80.0); PLATELET COUNT 150 x10e3/uL (140-360); RED BLOOD COUNT 3.78 x10e6/uL (3.6-5.1); RED CELL DISTRIBUTION WIDTH 12.5 % (11.7-14.4)
[2022-05-06 16:06] LABS: ANION GAP 13.4 mmol/L (8-16); CALCIUM 8.3 mg/dL (8.4-10.2); CREATININE, SERUM 0.62 mg/dL (0.57-1.11); POTASSIUM 3.4 mmol/L (3.5-5.1)
[2022-05-06 16:23] VITALS: BP 117/55
[2022-05-06 16:49] VITALS: BP 117/55
[2022-05-06 16:54] VITALS: BP 117/55
[2022-05-06] MEDS ORDERED: TYLENOL EXTRA500 MG PO (17:11)
[2022-05-06] MEDS: ONDANSETRON HCL INJ 2MG/ML 2ML 2 MG/ML VIAL IV PRN ×2 (17:20→21:57)
[2022-05-06] MEDS: D5.45%NS/KCL 20MEQ 1,000 ML IV SCH (17:22)
[2022-05-06 20:00] VITALS: BP 119/63
[2022-05-06 21:00] VITALS: BP 117/55
[2022-05-07] VITALS (9 sets, daily range): BP systolic 108–127; BP diastolic 58–73
[2022-05-07] MEDS: D5.45%NS/KCL 20MEQ 1,000 ML IV SCH ×4 (03:02→21:37)
[2022-05-07] MEDS: ONDANSETRON HCL INJ 2MG/ML 2ML 2 MG/ML VIAL IV PRN ×2 (03:20→07:54)
[2022-05-07 05:44] LABS: BASOPHILS % 0.1 % (0.0-1.0); HEMATOCRIT 32.5 % (34.2-44.1); HEMOGLOBIN 11.1 g/dL (12.0-16.0); LYMPHOCYTES # (AUTO) 0.6 (1.0-3.2); LYMPHOCYTES % 6.1 % (18.0-39.1); MEAN CORPUSCULAR HEMOGLOBIN 30.1 pg (28-32); MEAN CORPUSCULAR HGB CONC 34.2 g/dL (31-35); MEAN CORPUSCULAR VOLUME 88.1 fL (81-99); MONOCYTES # (AUTO) 0.3 (0.2-0.8); MONOCYTES % 2.9 % (4.4-11.3); NEUTROPHILS # (AUTO) 8.2 (2.1-6.9); NEUTROPHILS % 90.6 % (38.7-80.0); PLATELET COUNT 168 x10e3/uL (140-360); RED BLOOD COUNT 3.69 x10e6/uL (3.6-5.1); RED CELL DISTRIBUTION WIDTH 12.1 % (11.7-14.4)
[2022-05-07 06:05] LABS: ANION GAP 15.4 mmol/L (8-16); CALCIUM 8.1 mg/dL (8.4-10.2); CREATININE, SERUM 0.64 mg/dL (0.57-1.11); POTASSIUM 4.4 mmol/L (3.5-5.1)
[2022-05-07] MEDS ORDERED: HYDRALAZINE HCL 20 MG/ML VIAL IV PRN (08:30)
[2022-05-07] MEDS ORDERED: MAGNESIUM SULFATE 2GM/50ML IV ONE (08:30)
[2022-05-07] MEDS ORDERED: MAGNESIUM SULFATE 2GM/50ML 50 ML IV ONE (09:30)
[2022-05-07] MEDS: METOCLOPRAMIDE HCL 10 MG/2ML VIAL IV SCH ×3 (09:59→21:37)
[2022-05-07] MEDS ORDERED: MORPHINE SULFATE 1 MG/ML 30ML PCA IV PRN (13:45)
[2022-05-07] MEDS: DOCUSATE SODIUM 100 MG CAP PO SCH (17:46)
[2022-05-07] MEDS ORDERED: Morphine 2mg Syringe 2 MG/ML SYR IV PRN (21:15)
[2022-05-07] MEDS ORDERED: ACETAMINOPHEN/CODEINE 300MG - 30MG TAB PO PRN (21:15)
[2022-05-08] VITALS (9 sets, daily range): BP systolic 130–149; BP diastolic 62–72
[2022-05-08] MEDS: METOCLOPRAMIDE HCL 10 MG/2ML VIAL IV SCH ×5 (03:59→20:53)
[2022-05-08 04:53] LABS: BASOPHILS % 0.2 % (0.0-1.0); EOSINOPHILS % 0.1 % (0.0-6.0); HEMATOCRIT 33.2 % (34.2-44.1); HEMOGLOBIN 10.9 g/dL (12.0-16.0); LYMPHOCYTES # (AUTO) 1.4 (1.0-3.2); LYMPHOCYTES % 12.8 % (18.0-39.1); MEAN CORPUSCULAR HEMOGLOBIN 30.4 pg (28-32); MEAN CORPUSCULAR HGB CONC 32.8 g/dL (31-35); MEAN CORPUSCULAR VOLUME 92.7 fL (81-99); MONOCYTES # (AUTO) 0.4 (0.2-0.8); MONOCYTES % 4.1 % (4.4-11.3); NEUTROPHILS # (AUTO) 8.9 (2.1-6.9); NEUTROPHILS % 82.4 % (38.7-80.0); PLATELET COUNT 152 x10e3/uL (140-360); RED BLOOD COUNT 3.58 x10e6/uL (3.6-5.1); RED CELL DISTRIBUTION WIDTH 12.6 % (11.7-14.4)
[2022-05-08 05:13] LABS: ANION GAP 13.3 mmol/L (8-16); CALCIUM 8.1 mg/dL (8.4-10.2); CREATININE, SERUM 0.76 mg/dL (0.57-1.11); POTASSIUM 4.3 mmol/L (3.5-5.1)
[2022-05-08] MEDS: D5.45%NS/KCL 20MEQ 1,000 ML IV SCH (07:14)
[2022-05-08] MEDS: ONDANSETRON HCL INJ 2MG/ML 2ML 2 MG/ML VIAL IV PRN (07:21)
[2022-05-08] MEDS ORDERED: MAGNESIUM/ALUMINUM/SIMETHICONE 30 ML UDC PO PRN (08:15)
[2022-05-08] MEDS ORDERED: Morphine 2mg Syringe 2 MG/ML SYR IV PRN (08:15)
[2022-05-08] MEDS ORDERED: HYDROCODONE/APAP 10MG-325MG TAB PO PRN (08:15)
[2022-05-08] MEDS ORDERED: ESTRADIOL 1 MG TAB PO SCH (08:15)
[2022-05-08] MEDS ORDERED: KETOROLAC TROMETHAMINE 30 MG/ML VIAL IV ONE (08:45)
[2022-05-08] MEDS: DOCUSATE SODIUM 100 MG CAP PO SCH ×2 (09:00→17:58)
[2022-05-08] MEDS: ACETAMINOPHEN 1000 MG/100 ML IV PRN ×2 (14:10→20:54)
[2022-05-08] MEDS ORDERED: SODIUM CHLORIDE 0.9% 250ML 250 ML ONE (14:15)
[2022-05-08] MEDS ORDERED: DOXAZOSIN MESYLATE 2 MG TAB PO SCH (21:00)
[2022-05-09 04:47] LABS: BASOPHILS % 0.3 % (0.0-1.0); EOSINOPHILS % 0.4 % (0.0-6.0); HEMATOCRIT 29.8 % (34.2-44.1); HEMOGLOBIN 10.2 g/dL (12.0-16.0); LYMPHOCYTES # (AUTO) 1.3 (1.0-3.2); LYMPHOCYTES % 16.8 % (18.0-39.1); MEAN CORPUSCULAR HEMOGLOBIN 30.4 pg (28-32); MEAN CORPUSCULAR HGB CONC 34.2 g/dL (31-35); MEAN CORPUSCULAR VOLUME 88.7 fL (81-99); MONOCYTES # (AUTO) 0.4 (0.2-0.8); MONOCYTES % 5.8 % (4.4-11.3); NEUTROPHILS # (AUTO) 5.7 (2.1-6.9); NEUTROPHILS % 76.3 % (38.7-80.0); PLATELET COUNT 153 x10e3/uL (140-360); RED BLOOD COUNT 3.36 x10e6/uL (3.6-5.1); RED CELL DISTRIBUTION WIDTH 12.6 % (11.7-14.4)
[2022-05-09 05:04] LABS: ANION GAP 11.9 mmol/L (8-16); CALCIUM 8.1 mg/dL (8.4-10.2); CREATININE, SERUM 0.79 mg/dL (0.57-1.11); POTASSIUM 3.9 mmol/L (3.5-5.1)
[2022-05-09 05:12] VITALS: BP 130/72
[2022-05-09] MEDS ORDERED: ESTRACE42.5 GM VG (07:01)
[2022-05-09] MEDS: METOCLOPRAMIDE HCL 10 MG/2ML VIAL IV SCH ×2 (07:30→11:30)
[2022-05-09] MEDS: DOCUSATE SODIUM 100 MG CAP PO SCH (09:00)
[2022-05-09 09:12] VITALS: BP 130/72
[2022-05-09 09:57] VITALS: BP 121/59
[2022-05-09] MEDS: ACETAMINOPHEN 1000 MG/100 ML IV PRN (10:46)
[2022-05-09] MEDS ORDERED: ONDANSETRON HCL 4 MG ORAL DISINTEGRATING TAB PO PRN (11:00)
[2022-05-09 13:54] VITALS: BP 138/68
[2022-05-09] MEDS ORDERED: OMEPRAZOLE40 MG PO (14:07)
[2022-05-09] MEDS ORDERED: ONDANSETRON ODT4 MG PO (14:08)
[2022-05-09] MEDS ORDERED: ULTRAM50 MG PO (14:09)
[2022-05-09] MEDS ORDERED: METOCLOPRAMIDE HCL 10 MG TAB PO SCH (16:30)
[2022-05-10] MEDS ORDERED: PANTOPRAZOLE SOD 40 MG TABEC PO SCH (07:30)
== END 2022-05-09 15:08 | disposition home or self-care (01) | DRG 742 ==
LOC: OR 10:56 → PACU V 15:08 → MED/SURG 16:23
PROVIDERS: ADMIT Urology; ATTEND Urology
PROC: 0JUC0JZ Supplement of Pelvic Region Subcutaneous Tissue and Fascia with Synthetic Substitute, Open Approach (ICD-10-PCS; 2022-05-06)
PROC: 0UB70ZZ Excision of Bilateral Fallopian Tubes, Open Approach (ICD-10-PCS; 2022-05-06)
PROC: BT141ZZ Fluoroscopy of Kidneys, Ureters and Bladder using Low Osmolar Contrast (ICD-10-PCS; principal; 2022-05-06 13:13)
PROC: 0UT20ZZ Resection of Bilateral Ovaries, Open Approach (ICD-10-PCS; 2022-05-06 13:13)
DX: N81.10 Cystocele, unspecified (principal); N39.0 Urinary tract infection, site not specified; N83.311 Acquired atrophy of right ovary; N39.46 Mixed incontinence; E83.42 Hypomagnesemia; N83.202 Unspecified ovarian cyst, left side; K21.9 Gastro-esophageal reflux disease without esophagitis; Z87.440 Personal history of urinary (tract) infections; Z87.898 Personal history of other specified conditions; Z91.018 Allergy to other foods; Z88.2 Allergy status to sulfonamides; Z88.8 Allergy status to other drugs, medicaments and biological substances; N83.209 Unspecified ovarian cyst, unspecified side; Z20.822 Contact with and (suspected) exposure to COVID-19
CPT/HCPCS: 0223U; 36415; 74420; 80048; 83735; 85025; 88304; 88305; 93005; 94799; 96361; 99251; C1758; C1781; J1100; J1580; J1885; J2001; J2250; J2270; J2405; J2543; J2710; J2765; J3010; J3475; J7050